=== PATIENT | female | born 1975 | race Caucasian/White ===

== ENCOUNTER 2016-02-24 13:44 | Emergency (ER) | payer OTHER ==
[~2016-02-24 13:44] MED LIST: MOTRIN 800800 MG/TAB PO; PERCOCET 325 MG1 TA2 PO; PRENATAL VITAMI1 TAB PO; PRILOSEC 20MG20 MG PO
[2016-02-24 13:48] VITALS: PULSE 93; TEMP 97.7
[2016-02-24 15:10] VITALS: BP 122/85
== END 2016-02-24 15:11 | disposition home or self-care (01) ==
LOC: COL.ER 13:44
DX: H65.92 Unspecified nonsuppurative otitis media, left ear (principal)

== ENCOUNTER 2017-04-29 10:08 | Emergency (ER) | payer OTHER ==
[~2017-04-29] VITALS: Ht 160 cm; Wt 90.9 kg
[2017-04-29 10:10] VITALS: BP 129/75
[2017-04-29 10:32] LABS: COLLECTION METHOD CLEAN CATCH
[2017-04-29 10:46] LABS: MUCOUS Present /lpf; PH 6 (5-8); URINE APPEARANCE Hazy; URINE BACTERIA Rare /hpf; URINE BILIRUBIN Negative (NEGATIVE); URINE BLOOD 3+ (NEGATIVE); URINE COLOR Red; URINE GLUCOSE 1+ (NEGATIVE); URINE KETONE Negative (NEGATIVE); URINE LEUKOCYTE ESTERASE 1+ (NEGATIVE); URINE NITRATE Negative (NEGATIVE); URINE PROTEIN(semi-quant) 2+ (NEGATIVE); URINE RBC >50 /hpf; URINE UROBILINOGEN Negative (NEGATIVE)
[2017-04-29 10:56] LABS: BASO # 0.1 (0.0-0.2); BASO % 0.8 % (0.0-2.0); GRAN # 5.3 (1.4-6.5); GRAN % 71.3 % (42.2-75.2); HEMATOCRIT 42.5 % (37.0-47.0); HEMOGLOBIN 14.3 g/dl (12.5-16.0); LYMPH # 1.6 (1.2-3.4); LYMPH % 22.1 % (20.0-51.0); MEAN CELL VOLUME 85 fl (80.0-100.0); MEAN CORPUSCULAR HEMOGLOBIN 29 pg (27.0-31.0); MEAN CORPUSCULAR HGB CONC 34 g/dl (33.0-37.0); MEAN PLATELET VOLUME 11.1 fl (7.4-10.4); MONO # 0.4 (0.1-0.6); MONO % 5.5 % (1.7-9.3); PLATELET COUNT 245 K/mm3 (130-400); RED BLOOD COUNT 5.02 M/mm3 (4.10-5.30); REDCELL DISTRIBUTION WIDTH-CV 13.2 % (11.5-14.5)
[2017-04-29] MEDS ORDERED: CEFTIN 250250 MG/TAB PO (12:54)
[2017-04-29] MEDS ORDERED: NORCO 325 MG-51 TAB PO (12:54)
[2017-04-29 13:13] VITALS: PULSE 109; TEMP 98
== END 2017-04-29 13:12 | disposition home or self-care (01) ==
LOC: COL.ER 10:08
PROVIDERS: Nurse Practitioner
DX: O03.9 Complete or unspecified spontaneous abortion without complication (principal)
CPT/HCPCS: J7030

== ENCOUNTER 2018-01-31 17:53 | Emergency (ER) | payer OTHER ==
[~2018-01-31] VITALS: Ht 161 cm; Wt 92.0 kg
[~2018-01-31 17:53] MED LIST changes: +CEFTIN 250250 MG/TAB PO; +NORCO 325 MG-51 TAB PO
[2018-01-31] MEDS ORDERED: MOTRIN 400400 MG/TAB PO (18:02)
[2018-01-31] MEDS ORDERED: TYLENOL 325MG325 MG PO (18:02)
[2018-01-31] MEDS ORDERED: FLEXERIL 1010 MG/TAB PO (19:17)
[2018-01-31 19:31] VITALS: BP 128/84; PULSE 81; TEMP 98
== END 2018-01-31 19:33 | disposition home or self-care (01) ==
LOC: COL.ER 17:53
DX: M62.838 Other muscle spasm (principal)
CPT/HCPCS: J1885; J2360

== ENCOUNTER 2018-11-22 10:46 | Emergency (ER) | payer OTHER ==
[~2018-11-22] VITALS: Ht 154.9 cm; Wt 90.9 kg
[~2018-11-22 10:46] MED LIST changes: +FLEXERIL 1010 MG/TAB PO; +MOTRIN 400400 MG/TAB PO; +TYLENOL 325MG325 MG PO
[2018-11-22 10:53] VITALS: BP 139/91; TEMP 97.7
[2018-11-22] MEDS ORDERED: FLEXERIL 1010 MG/TAB PO (11:55)
[2018-11-22 12:34] VITALS: PULSE 101
== END 2018-11-22 12:34 | disposition home or self-care (01) ==
LOC: COL.ER 10:46
DX: M54.12 Radiculopathy, cervical region (principal); R42 Dizziness and giddiness; Z79.1 Long term (current) use of non-steroidal anti-inflammatories (NSAID)